=== PATIENT | female | born 1975 | race Two or more races ===

== ENCOUNTER 2018-10-02 11:47 | Inpatient (IN) | payer OTHER ==
[~2018-10-02] VITALS: Ht 157.5 cm; Wt 55.3 kg
[2018-10-03] MEDS ORDERED: VALACYCLOVIR1000 MG PO (09:10)
== END 2018-10-08 17:11 | DRG 758 ==
LOC: OB/GYN 11:47
PROVIDERS: ADMIT Obstetrics & Gynecology
DX: N76.4 Abscess of vulva (principal); D68.62 Lupus anticoagulant syndrome; B95.62 Methicillin resistant Staphylococcus aureus infection as the cause of diseases classified elsewhere

== ENCOUNTER 2021-04-13 15:58 | Inpatient (IN) | payer OTHER ==
[~2021-04-13] VITALS: Ht 157.5 cm; Wt 49.4 kg
[~2021-04-13 15:58] MED LIST: VALACYCLOVIR1000 MG PO
[2021-04-13] MEDS ORDERED: CHILDREN'S ASPI81 MG (16:28)
[2021-04-14] MEDS ORDERED: OMEPRAZOLE20 MG (10:13)
[2021-04-14] MEDS ORDERED: DICLOFENAC SOD100 MG (10:13)
[2021-04-14] MEDS ORDERED: VALACYCLOVIR1000 MG (10:14)
== END 2021-04-15 10:06 | disposition home or self-care (01) | DRG 812 ==
LOC: ER 15:58 → MEDJ 21:06
PROVIDERS: ADMIT Internal Medicine; ATTEND Internal Medicine
PROC: 30233N1 Transfusion of Nonautologous Red Blood Cells into Peripheral Vein, Percutaneous Approach (ICD-10-PCS; principal; 2021-04-14)
DX: D64.9 Anemia, unspecified (principal); D68.62 Lupus anticoagulant syndrome; D50.0 Iron deficiency anemia secondary to blood loss (chronic); N93.9 Abnormal uterine and vaginal bleeding, unspecified; Z20.822 Contact with and (suspected) exposure to COVID-19; Z79.82 Long term (current) use of aspirin

== ENCOUNTER 2021-08-30 07:58 | Outpatient (CLI) | payer OTHER ==
[~2021-08-30 07:58] MED LIST changes: +CHILDREN'S ASPI81 MG; +DICLOFENAC SOD100 MG; +OMEPRAZOLE20 MG; +VALACYCLOVIR1000 MG
== END 2021-08-30 07:59 | disposition home or self-care (01) ==
LOC: LAB 07:58
PROVIDERS: ATTEND Internal Medicine Hematology & Oncology
DX: D50.8 Other iron deficiency anemias (principal); I10 Essential (primary) hypertension; R74.02 Elevation of levels of lactic acid dehydrogenase [LDH]; K76.89 Other specified diseases of liver; D51.8 Other vitamin B12 deficiency anemias; D51.1 Vitamin B12 deficiency anemia due to selective vitamin B12 malabsorption with proteinuria; D51.0 Vitamin B12 deficiency anemia due to intrinsic factor deficiency; E03.8 Other specified hypothyroidism; D68.59 Other primary thrombophilia; D68.61 Antiphospholipid syndrome; D68.62 Lupus anticoagulant syndrome

== ENCOUNTER 2021-11-26 14:57 | Inpatient (IN) | payer OTHER ==
[~2021-11-26] VITALS: Ht 157.5 cm; Wt 51.3 kg
[2021-11-30] MEDS ORDERED: MEGESTROL ACETA40 MG (13:41)
[2021-11-30] MEDS ORDERED: INTEGRA F CAPS1 EAC1 (13:41)
[2021-12-01] MEDS ORDERED: NEURONTIN600 MG PO (06:51)
[2021-12-01] MEDS ORDERED: FERROUS SULFAT325 M1 PO (06:51)
[2021-12-01] MEDS ORDERED: LOVENOX40 MG/0.4 SUBCUTANEO (06:51)
[2021-12-01] MEDS ORDERED: IBUPROFEN800 MG PO (06:51)
== END 2021-12-01 09:51 | disposition home or self-care (01) | DRG 743 ==
LOC: ER 14:57 → OB/GYN 11-27 09:22
PROVIDERS: ADMIT Obstetrics & Gynecology; ATTEND Obstetrics & Gynecology
PROC: 0UT90ZZ Resection of Uterus, Open Approach (ICD-10-PCS; principal; 2021-11-27)
PROC: 0UT70ZZ Resection of Bilateral Fallopian Tubes, Open Approach (ICD-10-PCS; 2021-11-27)
PROC: 30233N1 Transfusion of Nonautologous Red Blood Cells into Peripheral Vein, Percutaneous Approach (ICD-10-PCS; 2021-11-27)
DX: D25.1 Intramural leiomyoma of uterus (principal); D25.2 Subserosal leiomyoma of uterus; D50.0 Iron deficiency anemia secondary to blood loss (chronic); Z20.822 Contact with and (suspected) exposure to COVID-19

== ENCOUNTER → 2022-02-21 08:22 | Outpatient (CLI) | payer OTHER ==
[~2022-02-21 08:22] MED LIST changes: +FERROUS SULFAT325 M1 PO; +IBUPROFEN800 MG PO; +INTEGRA F CAPS1 EAC1; +LOVENOX40 MG/0.4 SUBCUTANEO; +MEGESTROL ACETA40 MG; +NEURONTIN600 MG PO
== END | disposition home or self-care (01) ==
LOC: LAB 08:22
PROVIDERS: ATTEND Internal Medicine Hematology & Oncology
DX: D50.8 Other iron deficiency anemias (principal); I10 Essential (primary) hypertension; R74.02 Elevation of levels of lactic acid dehydrogenase [LDH]; K76.89 Other specified diseases of liver; D51.8 Other vitamin B12 deficiency anemias; E03.8 Other specified hypothyroidism; D68.59 Other primary thrombophilia; D68.61 Antiphospholipid syndrome; D68.62 Lupus anticoagulant syndrome; D68.312 Antiphospholipid antibody with hemorrhagic disorder

== ENCOUNTER 2023-01-30 07:19 | Outpatient (CLI) | payer OTHER | END 2023-01-30 07:22 | disposition home or self-care (01) | LOC: LAB 07:19 | PROVIDERS: ATTEND Internal Medicine Hematology & Oncology | DX: D50.8 Other iron deficiency anemias (principal); I10 Essential (primary) hypertension; R74.02 Elevation of levels of lactic acid dehydrogenase [LDH]; K76.89 Other specified diseases of liver; E55.9 Vitamin D deficiency, unspecified; D50.0 Iron deficiency anemia secondary to blood loss (chronic); D68.62 Lupus anticoagulant syndrome; D68.61 Antiphospholipid syndrome; D68.59 Other primary thrombophilia ==

== ENCOUNTER → 2023-10-09 09:17 | Outpatient (CLI) | payer OTHER ==
[2023-10-09 10:56] LABS: HEMATOCRIT 39.4 % (36.0-45.00); HEMOGLOBIN 13.2 g/dL (12.0-15.00); MEAN CELL VOLUME 88.4 fL (80.00-100.00); MEAN CORPUSCULAR HEMOGLOBIN 29.5 pg (27.00-32.0); MEAN CORPUSCULAR HGB CONC 33.4 g/dl (32.0-36.0); PLATELET COUNT 196 K/uL (150-450); RED BLOOD COUNT 4.46 M/uL (4.00-6.00); RED CELL DISTRIBUTION WIDTH 13.3 % (11.5-14.5)
[2023-10-09 11:40] LABS: FOLIC ACID 19.26 ng/ml (4.78-20); VITAMIN D3 25 HYDROXY 37.73 ng/ml (30-120)
[2023-10-09 11:43] LABS: % SATURACION 22.5 % (15-50); ALBUMIN 4.1 gm/dL (3.4-5.0); BILIRUBIN TOTAL 0.44 mg/dL (0.3-1.2); CALCIUM 9.5 mg/dL (8.5-10.1); CREATININE SERUM 0.49 mg/dL (0.55-1.02); FERRITIN 103.6 NG/ML (8-252); GFR 133.68; GLOBULINA 3.7 G/DL (2.4-3.5); POTASSIUM 4.08 mEq/L (3.5-5.1); TOTAL PROTEIN 7.8 gm/dL (6.4-8.2)
== END | disposition home or self-care (01) ==
LOC: LAB 09:17
PROVIDERS: ATTEND Internal Medicine Hematology & Oncology
DX: D50.8 Other iron deficiency anemias (principal); D51.3 Other dietary vitamin B12 deficiency anemia; D68.61 Antiphospholipid syndrome; D68.62 Lupus anticoagulant syndrome; D68.59 Other primary thrombophilia; E55.9 Vitamin D deficiency, unspecified

== ENCOUNTER → 2024-08-26 08:24 | Outpatient (CLI) | payer OTHER ==
[2024-08-26 09:17] LABS: HEMATOCRIT 40.1 % (36.0-45.00); HEMOGLOBIN 13.3 g/dL (12.0-15.00); MEAN CELL VOLUME 87.7 fL (80.00-100.00); MEAN CORPUSCULAR HEMOGLOBIN 29.2 pg (27.00-32.0); MEAN CORPUSCULAR HGB CONC 33.3 g/dl (32.0-36.0); PLATELET COUNT 236 K/uL (150-450); RED BLOOD COUNT 4.57 M/uL (4.00-6.00); RED CELL DISTRIBUTION WIDTH 13.2 % (11.5-14.5)
[2024-08-26 09:56] LABS: % SATURACION 26.2 % (15-50); ALBUMIN 4.1 gm/dL (3.4-5.0); BILIRUBIN TOTAL 0.44 mg/dL (0.3-1.2); CREATININE SERUM 0.48 mg/dL (0.55-1.02); FERRITIN 76.7 NG/ML (8-252); GFR 136.9; GLOBULINA 3.7 G/DL (2.4-3.5); POTASSIUM 3.98 mEq/L (3.5-5.1); TOTAL PROTEIN 7.8 gm/dL (6.4-8.2)
[2024-08-26 10:56] LABS: FOLIC ACID > 20.00 ng/ml (4.78-20); VITAMIN D3 25 HYDROXY 43.39 ng/ml (30-120)
== END | disposition home or self-care (01) ==
LOC: LAB 08:24
PROVIDERS: ATTEND Internal Medicine Hematology & Oncology
DX: D50.8 Other iron deficiency anemias (principal); D51.3 Other dietary vitamin B12 deficiency anemia; D68.59 Other primary thrombophilia; E55.9 Vitamin D deficiency, unspecified; I10 Essential (primary) hypertension; K76.89 Other specified diseases of liver; R74.02 Elevation of levels of lactic acid dehydrogenase [LDH]; D68.61 Antiphospholipid syndrome; D68.62 Lupus anticoagulant syndrome

== ENCOUNTER 2025-05-26 08:47 | Outpatient (CLI) | payer OTHER ==
[2025-05-26 10:26] LABS: BASO % 0.2 % (0.1-1.2); EOS # 0.23 (0.04-0.54); EOS % 4.1 % (0.7-7.0); LYMPH # 1.42 (1.18-3.74); LYMPH % 25.4 % (19.3-53.1); MEAN PLATELET VOLUME 11.40 fl (9.4-12.4); MONO # 0.51 (0.24-0.82); MONO % 9.1 % (4.7-12.5); NEUT # 3.40 (1.56-6.13); NEUT % 60.8 % (34.0-71.1); RED CELL DISTRIBUTION WIDTH 13.4 % (11.6-14.4)
[2025-05-26 11:17] LABS: % SATURACION 28.0 % (15-50); ALT/SGPT 25.0 U/L (12-78); AST/SGOT 17.0 U/L (15-37); BILIRUBIN TOTAL 0.59 mg/dL (0.3-1.2); BUN CREA RATIO 49.0 (7.0-25.0); CREATININE SERUM 0.41 mg/dL (0.55-1.02); FE 92.0 ug/dl (50-170); GFR 163.55; GLOBULINA 3.3 G/DL (2.4-3.5); GLUCOSE FASTING 88.0 mg/dL (65-100); LDH 143.0 U/L (84-246); OSMOLALITY SERUM 285.0 MOSM/KG (275-295)
[2025-05-26 14:27] LABS: VITAMIN D3 25 HYDROXY 30.34 ng/ml (30-120)
[2025-05-27 10:19] LABS: FOLIC ACID 14.22 ng/ml (4.78-20)
== END 2025-05-26 08:53 | disposition home or self-care (01) ==
LOC: LAB 08:47
PROVIDERS: ATTEND Internal Medicine Hematology & Oncology
DX: D50.8 Other iron deficiency anemias (principal); I10 Essential (primary) hypertension; R74.02 Elevation of levels of lactic acid dehydrogenase [LDH]; K76.89 Other specified diseases of liver; E55.9 Vitamin D deficiency, unspecified; Z13.29 Encounter for screening for other suspected endocrine disorder; D51.3 Other dietary vitamin B12 deficiency anemia; D68.61 Antiphospholipid syndrome; D68.62 Lupus anticoagulant syndrome